=== PATIENT | female | born 1960 | race Caucasian/White ===

== ENCOUNTER 2016-10-15 07:03 | Day surgery (SDC) | payer BC ==
[2016-10-13 08:51] VITALS: BMI 30.1
--- NOTE | 2016-10-14 16:14 | HP ---
DATE OF ADMISSION: 10/15/2016 Lori Moore is a 56-year-old patient seen with left shoulder pain. We discussed options. She elected to proceed with left shoulder arthroscopy. Consent was obtained. Past medical history is hypothyroidism. Past surgical history is right shoulder arthroscopy. DAILY MEDICATIONS: Ibuprofen, levothyroxine. ALLERGIES: None. SOCIAL HISTORY: Patient denies tobacco use. PHYSICAL EVALUATION OF THE LEFT SHOULDER: Flexion 150 degrees, abduction 120 degrees, external rotation is 50 degrees with pain and weakness. Tenderness along the anterolateral acromion rotator cuff insertion. Impingement positive at 90 degrees. Distal neurovascular exam intact. Radiographs of the left shoulder revealed a type II anterior acromion and cystic changes of the tuberosity. An MRI of the left shoulder revealed impingement and rotator cuff tendinitis. IMPRESSION: Left shoulder impingement with possible rotator cuff tear. PLAN: Left shoulder arthroscopy with subacromial decompression, possible arthroscopic rotator cuff repair, and debridement.
[~2016-10-15 07:03] MED LIST: DEXAMETHASONE SOD PHOSPHATE 10 MG/ML 1 ML VIAL IV ONE; HYDROmorphone 1 MG/ML 1 ML SYRINGE IVP PRN; LACTATED RINGERS 1,000 ML IV SCH; LIDOCAINE 1% 20 ML VIAL (10MG/ML) FOR IV START INTRADERMA PRN; MIDAZOLAM 2 MG/2 ML VIAL IV PRN; ONDANSETRON 4 MG/2 ML VIAL IVP ONE; SCOPOLAMINE 1.5MG/72HR PATCH TRANSDERM ONE; ceFAZolin 1,000 MG in DEXTROSE/WATER 1 50ML.BAG IV ONE
[2016-10-15] MEDS ORDERED: MIDAZOLAM 2 MG/2 ML VIAL IVP ONE (08:17)
[2016-10-15] MEDS ORDERED: fentaNYL (PF) 50 MCG/ML 2 ML AMP ONE (08:29)
[2016-10-15] MEDS ORDERED: SUCCINYLCHOLINE CHLORIDE 100 MG/5 ML SYR IV ONE (08:29)
[2016-10-15] MEDS ORDERED: ROPIVACAINE 5 MG/ML 30 ML VIAL ONE (08:29)
[2016-10-15] MEDS ORDERED: MIDAZOLAM 2 MG/2 ML VIAL ONE (08:29)
[2016-10-15] MEDS ORDERED: LIDOCAINE 1% INJ 10MG/ML (20 ML MDV) ONE (08:29)
[2016-10-15] MEDS ORDERED: PROPOFOL 10 MG/ML 20 ML VIAL IV ONE (08:29)
[2016-10-15] MEDS ORDERED: LIDOCAINE 2%-EPI 1:100,000 20 ML VIAL ONE (08:29)
--- NOTE | 2016-10-15 10:08 | P.OP ---
Date of Procedure: 10/15/16 Preoperative Diagnosis: Left shoulder impingement Postoperative Diagnosis: 1. Left shoulder rotator cuff tear 2. Left shoulder impingement 3. Left shoulder superficial anterior labral tear Procedure(s) Performed: 1. Left shoulder arthroscopic rotator cuff repair 2. Left shoulder arthroscopic subacromial decompression 3. Left shoulder arthroscopic debridement labral tear Implants: 1-valeris 5.5 peek anchor Anesthesia: GETA, regional (Shoulder block) Surgeon: Nomi Garrett Return Agent [place] #1: Angel Montiel Estimated Blood Loss (ml): 15 Pathology: none sent Condition: stable Disposition: PACU Indications for Procedure: 56-year-old patient seen with progressive left shoulder pain. After treatment options discussed, she elected procedure left shoulder arthroscopy. Operative Findings: See description of procedure Description of Procedure: Patient underwent a shoulder block by department of anesthesia. The patient was then taken to the operative suite. The patient underwent a general anesthetic by the department of anesthesia. The patient was placed into a lateral position and secured. There was appropriate padding of the bony prominence. Left shoulder was then prepped and draped in normal sterile orthopedic fashion. We placed the extremity in 10 pounds of longitudinal traction. A posterior incision was now made for a posterior working portal site. The trocar and cannula were inserted into the glenohumeral joint. Arthroscopy was initiated. Spinal needle was now inserted anteriorly, to ascertain the anterior working portal site. An incision was now made in that area, a trocar was inserted followed by a probe. There was some superficial tearing of the anterior labrum. Grade 1 chondral malacia changes of the glenoid fossa with no osteochondral tears. Biceps tendon appeared intact with no obvious hyperemia or partial tearing. The posterior and inferior labrum appeared intact. I debrided that anterior superficial labral tear down to stable tissue. Residual labrum was found to be stable. Instruments now removed from the glenohumeral joint. Utilizing the posterior working portal site, the trocar and cannula were inserted into the subacromial space. Arthroscopy initiated. I made an incision 2 fingerbreadths lateral to the acromion. I introduced my trocar followed by my ArthroCare ablator. I now began ablating thick subacromial bursal tissue, which exposed the undersurface of the anterior acromion. This was diminished subacromial space. There was a prominent anterior acromion. A motorized bur was introduced and a subacromial decompression was performed. I also excised some osteophytes off the inferior aspect of the distal clavicle. The AC joint was visualized and noted to be only mildly arthritic. I did not think enough toward a Cb procedure. Turned my attention to the rotator cuff tendon. I did note a small tear anteriorly, the anterior aspect of the distal supraspinatus. I debrided the margins down to stable tissue. The tear now measured approximately 1.5 cm. I now abraded the footprint with a motorized bur. I introduced 2 everted mattress sutures. I then repaired the tendon with one single 5.5 peek anchor. We had good compression of the tendon along the footprint. Residual suture was were cut. The repair was stable. I injected 1 mL of Allogen intra-articular. Instruments now removed from the portal sites. All portal sites were approximated with nylon suture. Sterile dressings were applied followed by a shoulder immobilizer. Eduard GRANGER assisted with the procedure. The patient was awakened, transferred to a bed, and taken to recovery in stable condition.
[2016-10-15 10:13] VITALS: TEMP 96.8
[2016-10-15 10:20] VITALS: RESP 16
[2016-10-15 12:18] VITALS: BP 118/77; PULSE 52
== END 2016-10-15 12:42 | disposition home or self-care (01) ==
LOC: OR 07:03
PROVIDERS: ATTEND Orthopaedic Surgery
DX: M75.102 Unspecified rotator cuff tear or rupture of left shoulder, not specified as traumatic (principal); M75.42 Impingement syndrome of left shoulder; S43.402A Unspecified sprain of left shoulder joint, initial encounter; X58.XXXA Exposure to other specified factors, initial encounter; E03.9 Hypothyroidism, unspecified; Z79.899 Other long term (current) drug therapy
CPT/HCPCS: 64415; 29826; 29827; 20610; C1713; C1765; J2250; J1100; J2001; J3010; J0690; J2795; J0330; J2704

== ENCOUNTER → 2017-06-03 | Outpatient (CLI) | payer BC ==
--- NOTE | 2017-06-03 10:44 | CT ---
EXAMINATION TYPE: CT soft tissue neck w con DATE OF EXAM: 06/03/2017 HISTORY: Pain in right side of neck COMPARISON: NONE CT DLP: 336.3 mGycm. Automated Exposure Control for Dose Reduction was Utilized. TECHNIQUE: CT scan of the neck is performed with IV Contrast, patient injected with 100 mL of Omnipa que 300, axial images are obtained, coronal and sagittal reformatted images are reviewed. FINDINGS: Airway: There is asymmetric marked atrophy of right thyroid. There are 2 small subcentimeter nodules in left thyroid lobe. Consider nonemergent thyroid ultrasound follow-up. There is mild biapical pleur al/parenchymal scarring Parotid/submandibular glands: No gross abnormality seen. Carotid/Vascular Structures: No significant plaque or stenosis in common or internal carotid arteries bilaterally. Patent codominant vertebral arteries to basilar junction. Osseous Structures: There is moderate spurring anteriorly C5 and C6 levels. Other: No suspicious greater than 1 cm neck adenopathy is identified. A few prominent but subcentimet er lymph nodes are seen bilaterally. Largest for reference right submandibular level posterior all me dial aspect of right submandibular gland measures 9 x 8 mm axial image 49. No worrisome focal fluid collection is seen. Visualized portion of brain parenchyma is unremarkable. Visualized paranasal sinuses are clear. Visualized globes are intact. IMPRESSION: No significant abnormality is seen to account for patient's symptoms. Consider nonemerge nt thyroid ultrasound follow-up.
== END | disposition home or self-care (01) ==
LOC: RADCTMAIN 09:44
PROVIDERS: ATTEND Otolaryngology
DX: M54.2 Cervicalgia (principal); H92.01 Otalgia, right ear
CPT/HCPCS: 70491; Q9967

== ENCOUNTER → 2017-06-23 | Outpatient (CLI) | payer BC ==
--- NOTE | 2017-06-23 11:21 | US ---
EXAMINATION TYPE: US thyroid st tissue head/neck DATE OF EXAM: 06/23/2017 COMPARISON: NONE CLINICAL HISTORY: E04.1 Thyroid nodule. Thyroid nodule visualized left lobe on recent CT. Patient sta [place] complete thyroidectomy 1986 GLAND SIZE: Right Lobe: 1.4 x 0.7 x 0.6 cm Overall Parenchyma: homogenous Left Lobe: 3.0 x 1.1 x 1.5 cm Overall Parenchyma: homogeneous Isthmus Thickness: 0.3 cm NODULES RIGHT: # of nodules measured on right: 0 LEFT: # of nodules measured on left: 2 1. 0.6 X 0.4 x 0.6 cm solid nodule at the upper pole with well-defined margins; . This nodule is w ider than tall and shows intranodular vascularity. Prior size: no prior 2. 0.9 X 0.4 x 0.7 cm hypoechoic solid nodule at the lower pole with well-defined margins; . This n odule is wider than tall and shows intranodular vascularity. Prior size: no prior ISTHMUS: # of nodules measured in the isthmus: 0 Bilateral neck scanned, small amount of right thyroid tissue visualized. 2 nodules noted left thyroid IMPRESSION: Subcentimeter left thyroid nodules in a nonenlarged thyroid gland. Surveillance is recommended as the se do not meet size criteria for fine-needle aspiration.
== END | disposition home or self-care (01) ==
LOC: RADUSWWP 10:08
PROVIDERS: ATTEND Otolaryngology
DX: E04.2 Nontoxic multinodular goiter (principal)
CPT/HCPCS: 76536

== ENCOUNTER → 2018-01-13 | Outpatient (CLI) | payer BC ==
--- NOTE | 2018-01-13 15:28 | US ---
EXAMINATION TYPE: US thyroid st tissue head/neck DATE OF EXAM: 01/13/2018 COMPARISON: US 2018 CLINICAL HISTORY: E04.1 Thyroid nodules. Follow up thyroid nodules, on thyroid meds, patient states s he had a thyroidectomy in 1982. GLAND SIZE: Right Lobe: 1.0 x 0.6 x 0.7 cm Overall Parenchyma: homogenous Left Lobe: 3.2 x 1.2 x 1.3 cm Overall Parenchyma: homogeneous Isthmus Thickness: 0.2 cm NODULES RIGHT: # of nodules measured on right: 0 LEFT: # of nodules measured on left: 2 1. 0.5 X 0.4 x 0.6 cm hypoechoic mixed nodule at the mid pole with well-defined margins. This nodul e is wider than tall and shows intranodular vascularity. Prior size: 0.6 x 0.4 x 0.6 cm 2. 0.9 X 0.5 x 0.7 cm hypoechoic mixed nodule at the lower pole with well-defined margins. This nodu le is wider than tall and shows intranodular vascularity. Prior size: 0.9 x 0.4 x 0.7 cm ISTHMUS: # of nodules measured in the isthmus: 0 Bilateral neck scanned, no evidence of lymphadenopathy. IMPRESSION: 1. Stable subcentimeter left lobe thyroid nodules.
== END ==
LOC: RADUSWWP 09:34
PROVIDERS: ATTEND Otolaryngology
DX: E04.2 Nontoxic multinodular goiter (principal)
CPT/HCPCS: 76536

== ENCOUNTER → 2018-02-26 | Outpatient (CLI) | payer BC, OTHER ==
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
== END | disposition home or self-care (01) ==
LOC: RADMRIMAIN 07:25
PROVIDERS: ATTEND Orthopaedic Surgery
DX: M17.12 Unilateral primary osteoarthritis, left knee (principal); Z98.890 Other specified postprocedural states

== ENCOUNTER 2018-04-08 12:29 | Day surgery (SDC) | payer BC, OTHER ==
[2018-04-06 11:42] VITALS: BMI 36.3
--- NOTE | 2018-04-07 20:11 | HP ---
HISTORY AND PHYSICAL REASON FOR ADMISSION: Surgery scheduled for 04/08/2018 HISTORY OF PRESENT ILLNESS: Lori Moore is a 57-year-old patient seen with progressive left knee pain. Treatment options were discussed. She elected to proceed with arthroscopy. Consent was obtained. PAST MEDICAL HISTORY: Hypothyroidism. PAST SURGICAL HISTORY: Right shoulder arthroscopy. DAILY MEDICATIONS: Levothyroxine, ibuprofen. ALLERGIES: None reported. SOCIAL HISTORY: She denies current tobacco use. PHYSICAL EXAMINATION: Evaluation of left knee: Range of motion is -3 to 100 degrees. There is a mild effusion. There is tenderness along the medial joint line as well as the fibular head area. Positive medial Celena's. +1 Eliot. Good endpoint. MCL is +1. Good endpoint. RADIOGRAPHS: Radiographs of the left knee revealed evidence for a healing fibular head fracture. Left knee MRI revealed medial meniscal tear as well as a proximal fibular fracture. IMPRESSION: 1. Internal derangement, left knee with medial meniscal tear. 2. History of left knee fibular head fracture. 3. Hypothyroidism. PLAN: Left knee arthroscopy with partial meniscectomy and debridement. Surgery is scheduled for 04/08/2018. MMODL / IJN: [id number] /
[~2018-04-08 12:29] MED LIST changes: -ceFAZolin 1,000 MG in DEXTROSE/WATER 1 50ML.BAG IV ONE; +ceFAZolin IN SWFI 2 GM/20 ML SYRINGE IVP ONE
[2018-04-08] MEDS ORDERED: fentaNYL (PF) 50 MCG/ML 2 ML AMP ONE (14:04)
[2018-04-08] MEDS ORDERED: LIDOCAINE 1% INJ 10MG/ML (20 ML MDV) ONE (14:04)
[2018-04-08] MEDS ORDERED: MIDAZOLAM 2 MG/2 ML VIAL ONE (14:04)
[2018-04-08] MEDS ORDERED: HYDROmorphone (PF) 1 MG/ML ONE (14:04)
[2018-04-08] MEDS ORDERED: PROPOFOL 10 MG/ML 20 ML VIAL IV ONE (14:04)
[2018-04-08] MEDS ORDERED: BUPIVACAIN-EPI 0.25%-1:200,000 30 ML VIAL INTRAARTIC ONE ×3 (14:18→14:35)
[2018-04-08 14:50] VITALS: TEMP 97
--- NOTE | 2018-04-08 14:51 | P.OP ---
Date of Procedure: 04/08/18 Preoperative Diagnosis: Internal derangement left knee Postoperative Diagnosis: 1. Tear medial meniscus left knee 2. Grade 2 chondromalacia medial femoral condyle left knee 3. Grade 1/2 chondromalacia patella left knee 4. Reactive synovitis medial and suprapatellar compartments left knee Procedure(s) Performed: 1. Arthroscopic partial medial meniscectomy left knee 2. Arthroscopic chondroplasty medial femoral condyle left knee 3. Arthroscopic chondroplasty patella left knee 4. Arthroscopic partial synovectomy medial and suprapatellar compartments left knee Anesthesia: RAFIA, local Surgeon: Nomi Garrett Estimated Blood Loss (ml): 5 Pathology: none sent Condition: stable Disposition: PACU Indications for Procedure: 57-year-old patient seen with progressive left knee pain. After treatment options were discussed, she elected to proceed with arthroscopy. Operative Findings: see description of procedure Description of Procedure: Patient was taken to the operative suite. Patient underwent a general anesthetic by the department of anesthesia. Patient was given preoperative antibiotics. The left lower extremity was placed in a well-padded arthroscopic leg cross. The left leg was prepped and draped in the normal sterile orthopedic fashion. A lateral parapatellar and suprapatellar incision was made. Trochars were inserted. Arthroscopy was initiated. Suprapatellar pouch revealed diffuse thick reactive synovitis. The patellofemoral joint appeared to articulate congruently. There was grade 1/2 chondromalacia of the patella with some small osteochondral tears present. The scope was guided into the medial gutter. No loose bodies or plica were identified. The scope was then guided into the medial compartment. A medial parapatellar incision was made. Trocar inserted followed by probe. There was a radial tear posterior horn medial meniscus. There were grade 2 chondral moist changes medial femoral condyle with some osteochondral flap tears present. There was reactive synovitis anteriorly. I performed a partial medial meniscectomy down to stable tissue. I performed a chondroplasty of the femoral condyle down to stable tissue. I performed a partial synovectomy decompressing the reactive synovitis. The residual meniscus was stable. The residual osteochondral surface of the femoral condyle was stable. There was an area posteriorly of the tibial plateau the did have some eburnated exposed bone. Scope and probe were then guided into the intercondylar notch. Cruciates were identified, probed and found to be stable. The scope and probe were then guided into lateral compartment. Lateral meniscus was stable. The lateral compartment was otherwise unremarkable with no evidence for chondromalacia or loose body. The scope was in guided back into the suprapatellar compartment. I introduced a motorized shaver into the super compartment. I debrided some piecemeal fragments of meniscus I encountered. I performed a chondroplasty of the patella down to stable tissue. I performed a partial synovectomy decompressing the reactive synovitis. The shaver was removed. I took one more look on the entire knee, no residual debris. Instruments were now removed from the joint. The joint was infiltrated with .25% Marcaine. Steri-Strips were applied to the portal sites. Sterile dressings were applied. The patient was placed into a CHIP hose. No tourniquet was utilized. The patient was awakened, transferred to a bed and taken to recovery stable satisfactory condition.
[2018-04-08 15:02] VITALS: RESP 16
[2018-04-08 16:31] VITALS: BP 123/67; PULSE 71
== END 2018-04-08 16:57 | disposition home or self-care (01) ==
LOC: OR 12:29
PROVIDERS: ATTEND Orthopaedic Surgery
DX: M23.322 Other meniscus derangements, posterior horn of medial meniscus, left knee (principal); M22.42 Chondromalacia patellae, left knee; M65.862 Other synovitis and tenosynovitis, left lower leg; E03.9 Hypothyroidism, unspecified; Z79.890 Hormone replacement therapy; Z79.891 Long term (current) use of opiate analgesic
CPT/HCPCS: 29881; J2250; J1100; J2405; J2001; J3010; J1170; J2704; J0690

== ENCOUNTER → 2018-06-04 | Outpatient (CLI) | payer OTHER ==
--- NOTE | 2018-06-04 13:00 | MR ---
EXAMINATION TYPE: MR shoulder RT wo con DATE OF EXAM: 06/04/2018 COMPARISON: None HISTORY: Pain in right shoulder TECHNIQUE: Multiplanar, multisequence imaging of the right shoulder is performed without contrast. FINDINGS: Rotator Cuff: There is demonstration of the insertional fibers of both the infraspinatus and supraspi natus with multiple (at least 3 of each tendon) 2 mm insertional fiber tears. This is superimposed up on moderate supraspinatus and infraspinatus tendinopathy as there is alteration of the intrinsic sign al of the myotendinous junction and distal fibers of the supraspinatus and infraspinatus. Additionally there is a bursal surface tear of the myotendinous junction of the supraspinatus measuri ng 7 x 9 mm that is partial thickness, low-grade. The signal and muscle volume of the teres minor and subscapularis are unremarkable. Acromioclavicular Joint: There is no significant acromio clavicular arthropathy noted. Glenohumeral Joint: Mild cartilaginous loss of the inferior humeral head at the articular surface of the glenohumeral joint is noted. This measures approximately 8 mm. Labrum: The labrum appears grossly intact given limitation of non-arthrogram study. Biceps Tendon: The long head of biceps is in normal location within bicipital groove. Osseous defect of the humeral head for biceps anchor is noted. There is attenuation of the intra-articular portion o f the biceps tendon suggestive of moderate stenosis. Bone marrow signal: No focal abnormal marrow signal is appreciated. IMPRESSION: 1. Fenestration of the insertional fibers of the supraspinatus and infraspinatus with numerous multif ocal 2 mm tears of the insertional fibers. 2. Moderate supraspinatus and infraspinatus tendinopathy. 3. Low-grade partial-thickness bursal surface tear of the supraspinatus myotendinous junction measuri ng 7 x 9 mm. 4. Moderate intra-articular portion biceps tendinosis. 5. Partial thickness cartilaginous defect of the inferior humeral head.
== END | disposition home or self-care (01) ==
LOC: RADMRIMAIN 11:27
PROVIDERS: ATTEND Orthopaedic Surgery
DX: M75.111 Incomplete rotator cuff tear or rupture of right shoulder, not specified as traumatic (principal); M75.81 Other shoulder lesions, right shoulder

== ENCOUNTER → 2018-09-09 | Outpatient (CLI) | payer OTHER ==
[2018-09-09 12:22] LABS: Basophils # (A) 0.1 k/uL (0-0.2); Basophils % (A) 1 %; Eosinophils # (A) 0.1 k/uL (0-0.7); Eosinophils % (A) 1 %; HCT 42.5 % (34.0-46.0); HGB 14.1 gm/dL (11.4-16.0); Lymphocytes # (A) 1.4 k/uL (1.0-4.8); Lymphocytes % (A) 21 %; MCH 30.2 pg (25.0-35.0); MCHC 33.3 g/dL (31.0-37.0); MCV 90.8 fL (80.0-100.0); Mean Platelet Volume 7.6; Monocytes # (A) 0.4 k/uL (0-1.0); Monocytes % (A) 6 %; Neutrophils # (A) 4.6 k/uL (1.3-7.7); Neutrophils % (A) 69 %; Platelet Count 294 k/uL (150-450); RBC 4.68 m/uL (3.80-5.40); RDW 14.3 % (11.5-15.5); WBC 6.6 k/uL (3.8-10.6)
[2018-09-09 12:37] LABS: Potassium 4.3 mmol/L (3.5-5.1)
== END | disposition home or self-care (01) ==
LOC: LABPAT 10:56
PROVIDERS: ATTEND Orthopaedic Surgery
DX: Z01.818 Encounter for other preprocedural examination (principal); Z01.812 Encounter for preprocedural laboratory examination; M75.41 Impingement syndrome of right shoulder
CPT/HCPCS: 80051; 85025; 93005

== ENCOUNTER 2018-09-16 08:13 | Day surgery (SDC) | payer BC, OTHER ==
[2018-09-13 10:04] VITALS: BMI 34.0
--- NOTE | 2018-09-15 17:25 | HP ---
HISTORY AND PHYSICAL DATE OF SURGERY: 09/16/2018 Lori Moore is a 58-year-old patient seen with progressive right shoulder pain. Treatment options were discussed. She elected to proceed with right shoulder arthroscopy. Consent was obtained. PAST MEDICAL HISTORY: Hypothyroidism. PAST SURGICAL HISTORY: Shoulder arthroscopy, knee arthroscopy. DAILY MEDICATIONS: Levothyroxine. ALLERGIES: NONE. SOCIAL HISTORY: She denies tobacco use. PHYSICAL EVALUATION OF THE RIGHT SHOULDER: Flexion 150 degrees, abduction 130 degrees, external rotation 40 degrees with weakness. Tenderness along the anterolateral acromion and rotator cuff insertion site. Impingement sign is positive at 90 degrees. Distal neurovascular exam is intact. RADIOGRAPHS: Radiographs of the right shoulder revealed a partial rotator cuff tear, biceps tendinitis, cartilage defect of the humeral head. X-rays of the right shoulder failed to reveal any osseous abnormality. IMPRESSION: Right shoulder impingement with partial rotator cuff tear and biceps tendinitis. PLAN: Right shoulder arthroscopy with subacromial decompression, probable arthroscopic rotator cuff repair and debridement. MMODL / IJN: [id number] /
[~2018-09-16 08:13] MED LIST changes: +HYDROmorphone 0.5 MG/0.5 ML SYRINGE IVP PRN; -HYDROmorphone 1 MG/ML 1 ML SYRINGE IVP PRN; -LACTATED RINGERS 1,000 ML IV SCH
[2018-09-16] MEDS: LACTATED RINGERS 1,000 ML IV SCH ×2 (08:38→09:35)
[2018-09-16] MEDS ORDERED: MIDAZOLAM (PF) 2 MG/2 ML VIAL IVP ONE (09:05)
[2018-09-16] MEDS ORDERED: ROPIVACAINE 5 MG/ML 30 ML VIAL ONE (09:32)
[2018-09-16] MEDS ORDERED: PROPOFOL 10 MG/ML 20 ML VIAL IV ONE (09:32)
[2018-09-16] MEDS ORDERED: DEXAMETHASONE SOD PHOS (MDV) 100 MG/10 ML VIAL ONE (09:32)
[2018-09-16] MEDS ORDERED: LIDOCAINE 1% INJ 10MG/ML (20 ML MDV) ONE (09:32)
[2018-09-16] MEDS ORDERED: fentaNYL (PF) 50 MCG/ML 2 ML AMP ONE (09:32)
[2018-09-16] MEDS ORDERED: MIDAZOLAM 2 MG/2 ML VIAL ONE (09:32)
[2018-09-16] MEDS ORDERED: SUCCINYLCHOLINE CHLORIDE 100 MG/5 ML SYR IV ONE (09:32)
[2018-09-16] MEDS ORDERED: LACTATED RINGERS 1,000 ML IV ONE (10:30)
--- NOTE | 2018-09-16 11:10 | P.OP ---
Date of Procedure: 09/16/18 Preoperative Diagnosis: Right shoulder impingement Postoperative Diagnosis: 1. Right shoulder rotator cuff tear 2. Right shoulder impingement 3. Right shoulder partial long head biceps tendon tear Procedure(s) Performed: 1. Right shoulder arthroscopic rotator cuff repair 2. Right shoulder arthroscopic subacromial decompression 3. Right shoulder arthroscopic biceps tenotomy Anesthesia: GETA, regional (Interscalene block) Surgeon: Nomi Garrett Merchandise Worker #1: Angel Montiel Estimated Blood Loss (ml): 5 Pathology: none sent Condition: stable Disposition: PACU Indications for Procedure: 58-year-old patient seen with progressive right shoulder pain. After having treatment options discussed, she elected to proceed with arthroscopy. Operative Findings: See description of procedure Description of Procedure: Patient underwent an interscalene block by department of anesthesia for postoperative pain management. The patient was then taken to the operative suite. The patient underwent a general anesthetic by the department of anesthesia. The patient was placed into a lateral position and secured. There was appropriate padding of the bony prominence. Right shoulder was then prepped and draped in normal sterile orthopedic fashion. We placed the extremity in 10 pounds of longitudinal traction. A posterior incision was now made for a posterior working portal site. The trocar and cannula were inserted into the glenohumeral joint. Arthroscopy was initiated. Spinal needle was now inserted anteriorly, to ascertain the anterior working portal site. An incision was now made in that area, a trocar was inserted followed by a probe. There was some partial tearing long head biceps tendon. There was some residual suture material consistent with previous surgery. I could visualize a rotator cuff tear along the anterior aspect of the distal supraspinatus were glenohumeral side. I debrided that residual suture material. I performed arthroscopic biceps tenotomy. The labrum was stable. The glenohumeral joint was stable. Instruments now removed from glenohumeral joint. Utilizing the posterior working portal site, the trocar and cannula were inserted into the subacromial space. Arthroscopy initiated. I made an incision 2 fingerbreadths lateral to the acromion. I introduced my trocar followed by my ArthroCare ablator. I now began ablating thick subacromial bursal tissue, which exposed the undersurface of the anterior acromion. There was diminished subacromial space. There was a very prominent anterior acromion. A motorized bur was introduced and a subacromial decompression was performed. I also excised some osteophytes off the inferior aspect of the distal clavicle. The AC joint was visualized and noted to be only mildly arthritic. I now turned my attention to the distal supraspinatus rotator cuff tendon tear. It appeared to be just posterior to the previous repair. I debrided the margins down to stable tendon tissue. The defect measured 1.5 cm but a fairly mobile over the footprint. I abraded the footprint with a motorized bur. I could visualize with a previous anchor was inserted was able to actually extract that. We now left that open hole to reuse for our new anchor. With the assistance of Eduard GRANGER I passed 2 everted mattress sutures through good bites of rotator cuff tendon. I now chose a 6.25 Arthrex anchor. I passed the sutures through the anchor and the anchor was introduced our pre-punch hole. Appropriate tensioning was performed by Eduard GRANGER while I held the anchor and I will it in appropriate position. At this point Eduard GRANGER inserted the anchor compressing the tendon along the footprint very nicely. We had good compression of the tendon along the entire footprint. Residual suture limbs were clipped. I injected 1 mL Renue intra-articular. Instruments now removed from the portal sites. All portal sites were approximated with nylon suture. Sterile dressings were applied followed by a shoulder sling. Angel GRANGER assisted in this complex case. The patient was awakened, transferred to a bed, and taken to recovery in stable condition.
[2018-09-16 11:11] VITALS: TEMP 96.9
[2018-09-16 12:26] VITALS: BP 123/82; PULSE 57; RESP 16
--- NOTE | 2018-09-17 07:23 | P.ONQ ---
Anesthesiology Proc Note - PNB - Peripheral Nerve Block Performed Right Interscalene Single Time Out Performed: Yes Procedure Start Time: :04 Procedure Stop Time: 09:10 Indication: Acute Post-Operative Pain, Requested by physician Sedation Type: Sedate with meaningful contact maintained Position: Supine Needle Size: 50mm (2") Needle Gauge: 21 Technique: Ultrasound (ropi .5% 30cc plus dexamethasone 4 mg) Blood Aspirated: No Pain Paresthesia on Injection Noted: No Resistance on Injection: Normal Events: Uneventful and Well Tolerated
== END 2018-09-16 12:57 | disposition home or self-care (01) ==
LOC: OR 08:13
PROVIDERS: ATTEND Orthopaedic Surgery
DX: M75.101 Unspecified rotator cuff tear or rupture of right shoulder, not specified as traumatic (principal); M75.41 Impingement syndrome of right shoulder; S46.111A Strain of muscle, fascia and tendon of long head of biceps, right arm, initial encounter; X58.XXXA Exposure to other specified factors, initial encounter; M25.711 Osteophyte, right shoulder; E03.9 Hypothyroidism, unspecified; Z79.890 Hormone replacement therapy; Z79.891 Long term (current) use of opiate analgesic
CPT/HCPCS: 64415

== ENCOUNTER → 2018-12-14 | Outpatient (CLI) | payer BC ==
[2018-12-14 15:14] LABS: Basophils # (A) 0.1 k/uL (0-0.2); Basophils % (A) 1 %; Eosinophils # (A) 0.1 k/uL (0-0.7); Eosinophils % (A) 1 %; HCT 46.8 % (34.0-46.0); HGB 15.2 gm/dL (11.4-16.0); Lymphocytes # (A) 2.1 k/uL (1.0-4.8); Lymphocytes % (A) 23 %; MCH 29.4 pg (25.0-35.0); MCHC 32.5 g/dL (31.0-37.0); MCV 90.3 fL (80.0-100.0); Mean Platelet Volume 6.8; Monocytes # (A) 0.4 k/uL (0-1.0); Monocytes % (A) 5 %; Neutrophils # (A) 6.3 k/uL (1.3-7.7); Neutrophils % (A) 70 %; Platelet Count 331 k/uL (150-450); RBC 5.18 m/uL (3.80-5.40); RDW 13.4 % (11.5-15.5); WBC 9.1 k/uL (3.8-10.6)
[2018-12-14 15:21] LABS: Potassium 4.1 mmol/L (3.5-5.1)
[2018-12-14 15:24] LABS: INR 0.9 (<1.2); Prothrombin Time 9.9 sec (9.0-12.0)
== END | disposition home or self-care (01) ==
LOC: LABPAT 14:31
PROVIDERS: ATTEND Orthopaedic Surgery
DX: Z01.812 Encounter for preprocedural laboratory examination (principal); M17.11 Unilateral primary osteoarthritis, right knee
CPT/HCPCS: 36415; 80051; 85025; 85610; 87070

== ENCOUNTER 2018-12-20 06:13 | Day surgery (SDC) | payer BC, OTHER ==
--- NOTE | 2018-12-20 00:27 | HP ---
HISTORY AND PHYSICAL REASON FOR ADMISSION: Surgery scheduled for 12/20/2018 Lori Moore is a 58-year-old patient seen with symptomatic left knee osteoarthritis. We discussed options for treatment. She elected to proceed with left total knee arthroplasty. Consent regarding the procedure was obtained. PAST MEDICAL HISTORY: Hypothyroidism. PAST SURGICAL HISTORY: Right shoulder arthroscopy, left knee arthroscopy. DAILY MEDICATIONS: Levothyroxine. ALLERGIES: None. SOCIAL HISTORY: She denies tobacco use. PHYSICAL EXAMINATION: Evaluation of the left knee range of motion is -3 to 120. Tenderness medial joint line. Crepitus medial patellofemoral compartments. Pain with patellofemoral compression. Ligaments stable. Hip rotation without pain. Distal neurovascular exam intact. RADIOGRAPHS: Left knee radiographs revealed moderate to severe medial compartment osteoarthritis and mild patellofemoral compartment osteoarthritis. IMPRESSION: 1. Left knee osteoarthritis. 2. Hypothyroidism. PLAN: Left total knee arthroplasty. Surgery scheduled for 12/20/2018. MMODL / IJN: [id number] /
[~2018-12-20 06:13] MED LIST changes: +ACETAMINOPHEN TAB 500 MG TAB PO ONE; -DEXAMETHASONE SOD PHOSPHATE 10 MG/ML 1 ML VIAL IV ONE; -HYDROmorphone 0.5 MG/0.5 ML SYRINGE IVP PRN; +MELOXICAM 7.5 MG TAB PO ONE; -ONDANSETRON 4 MG/2 ML VIAL IVP ONE; +ROPIVACAINE 246.25 MG, EPINEPHrine 0.5 MG, KETOROLAC 30 MG, cloNIDine HCL/PF 80 MCG, WA... MISCELLANE ONE; -SCOPOLAMINE 1.5MG/72HR PATCH TRANSDERM ONE; +TRANEXAMIC ACID 1,000 MG in SODIUM CHLORIDE 0.9% 100 ML IVPB ONE; -ceFAZolin IN SWFI 2 GM/20 ML SYRINGE IVP ONE; +fentaNYL (PF) 50 MCG/ML 2 ML AMP IV PRN
[2018-12-20] MEDS: LACTATED RINGERS 1,000 ML IV SCH ×6 (06:41→19:23)
[2018-12-20] MEDS ORDERED: MIDAZOLAM (PF) 2 MG/2 ML VIAL IVP ONE (06:48)
[2018-12-20] MEDS ORDERED: DEXAMETHASONE SOD PHOSPHATE 4 MG/ML 1 ML VIAL IVP ONE (07:09)
[2018-12-20] MEDS ORDERED: ONDANSETRON 4 MG/2 ML VIAL IVP ONE (07:10)
[2018-12-20] MEDS ORDERED: ePHEDrine SULFATE/0.9% NACL/PF 50 MG/5 ML SYRINGE IV ONE (07:21)
[2018-12-20] MEDS ORDERED: MIDAZOLAM 2 MG/2 ML VIAL ONE (07:21)
[2018-12-20] MEDS ORDERED: TRANEXAMIC ACID 1,000 MG/10 ML VIAL ONE (07:21)
[2018-12-20] MEDS ORDERED: PROPOFOL 10 MG/ML 20 ML VIAL IV ONE (07:21)
[2018-12-20] MEDS ORDERED: fentaNYL (PF) 50 MCG/ML 2 ML AMP ONE (07:21)
[2018-12-20] MEDS ORDERED: SODIUM CHLORIDE 0.9% 100 ML BAG ONE (07:21)
[2018-12-20] MEDS ORDERED: ceFAZolin 3,000 MG in SODIUM CHLORIDE 0.9% IRRIGATIO 3,000 ML IRRIGATION ONE (07:29)
[2018-12-20] MEDS ORDERED: LACTATED RINGERS 1,000 ML IV ONE (08:47)
[2018-12-20] MEDS ORDERED: ROPIVACAINE 0.2%-NS ON-Q PUMP 1,090 MG, EMPTY PAIN BALL 1 EACH MISCELLANE PRN (08:57)
[2018-12-20] MEDS ORDERED: HYDROcodone/APAP 5-325MG 1 EACH TAB PO PRN (09:03)
[2018-12-20] MEDS ORDERED: HYDROmorphone 0.5 MG/0.5 ML SYRINGE IVP PRN ×2 (09:03)
[2018-12-20] MEDS ORDERED: HYDROmorphone 1 MG/ML 1 ML SYRINGE IVP PRN (09:03)
[2018-12-20] MEDS ORDERED: NALOXONE 0.4 MG/ML 1 ML VIAL IV PRN (09:03)
--- NOTE | 2018-12-20 09:03 | P.OP ---
Date of Procedure: 12/20/18 Preoperative Diagnosis: Left knee osteoarthritis Postoperative Diagnosis: Left knee osteoarthritis Procedure(s) Performed: Left total knee arthroplasty Implants: 1. Microport evolution size 3 left cemented femur 2. Microport evolution size 3 left cemented tibial baseplate 3. Microport evolution size 3 left CS 12 mm polyethylene tibial insert 4. Microport evolution 32 mm all polyethylene cemented patella Anesthesia: regional (Adductor canal catheter), local, spinal Surgeon: Nomi Garrett Travel Rn #1: Angel Montiel Estimated Blood Loss (ml): 50 Pathology: other (Bone) Condition: stable Disposition: PACU Indications for Procedure: 58-year-old patient seen with symptomatic left knee osteoarthritis. After treatment options were discussed, she elected to proceed with total knee arthroplasty. Operative Findings: see description of procedure Description of Procedure: Patient was taken to the operative suite after having an adductor canal catheter placed by the department of anesthesia for postoperative pain management. Patient underwent a spinal anesthetic by the department of anesthesia. Patient was given preoperative IV intake antibiotics and TXA. A well-padded tourniquet was placed about the left lower extremity. The lower extremity was then prepped and draped in the normal sterile orthopedic fashion. The extremity was elevated, a tourniquet was insufflated to 300. A standard anterior incision was made sharply through skin. Dissection was taken down through the subcutaneous soft tissues down to the extensor mechanism. A medial arthrotomy was performed, patella was everted and knee was flexed. There was advanced osteoarthritis noted. I introduced my distal intramedullary femoral drill. I then introduced the distal femoral cutting jig. Eduard GRANGER secured the cutting jig with 2 pins. I held retractors in position while Eduard GRANGER performed the distal femoral resection through the guide area we now removed her distal femoral cutting guide. We now placed our 4-in-1 femoral cutting block and positioned and it was secured with 2 pins by Eduard GRANGER while I held the block in position. The distal femoral finishing was now completed. A proximal tibial cutting guide was positioned. I held the guide in the appropriate position with both hands well Eduard GRANGER inserted stabilizing pins into the guide. Proxi mal tibial cut was made. We now placed a trial femoral component into position, along with an appropriate size tibial tray and insert. We now took the knee through range of motion and had full extension good flexion and good overall soft tissue balance noted. The patella was everted and stabilized with 2 towel clips held by Eduard GRANGER while I performed a flush with patellar quad tendon utilizing a fresh sawblade. We templated the patella, appropriate drill holes were made. An appropriate trial patella was positioned, knee was taken through full range of motion with the patella tracking very nicely. The trial patella was removed. Drill holes were made through the femoral component. All trial components were removed after marking off the appropriate rotation of the tibia. Retractors were now positioned along the proximal tibia. An appropriate keel punch was made with the appropriate size tibial guide by myself on Eduard GRANGER assisted by holding retractors. At this point appropriate size implants were chosen and opened. The joint was irrigated copiously with pulse lavage mechanical irrigation. The posterior capsule was infiltrated with local analgesic. The wound was irrigated with pulse lavage mechanical irrigation. We mixed antibiotic methylmethacrylate. We placed the knee into flexion. We placed multiple retractors assisted by Eduard GRANGER to expose the proximal tibia. Once the methyl methacrylate was ready, the tibial component was cemented into place removing any excess methylmethacrylate form by both myself and Eduard GRANGER. The femoral component was cemented into place removing the removing any excess methylmethacrylate performed by both myself and Eduard GRANGER. We then inserted the appropriate size polyethylene tibial insert. We made sure that it was locked into position. We took the knee into full extension, and then back in a flexion making sure we had removed any excess methylmethacrylate. The patellar component was then cemented down and secured with clamp. Excess methylmethacrylate removed. We kept the knee in full extension, patellar clamp in position until methylmethacrylate had hardened. Once it had hardened the patellar clamp was removed. The knee was taken through full range of motion. The patella tracked nicely. There was good soft tissue balancing. The tourniquet was now released. Additional hemostasis was achieved via electrocautery. A second gram of TXA was given. The wound again was irrigated with pulse lavage mechanical irrigation. The superficial soft tissues were infiltrated local analgesic. The extensor mechanism was repaired with Vicryl. We checked the repair with range of motion and it was stable. The subcutaneous soft tissues were repaired with Vicryl in layers. The skin was approximated with pernio/Dermabond. Sterile dressings were applied followed by loose web roll and Mike bandage. The patient was transferred to a bed, and taken to recovery in stable and satisfactory condition. Eduard GRANGER assisted with this complex procedure.
--- NOTE | 2018-12-20 09:55 | XR ---
EXAMINATION TYPE: XR knee limited LT DATE OF EXAM: 12/20/2018 CLINICAL HISTORY: Left knee pain and arthritis status post total knee replacement. TECHNIQUE: Portable AP and crosstable lateral views of the left knee are obtained immediately postop eratively. COMPARISON: None FINDINGS: Metallic hardware from total left knee arthroplasty is seen and appears satisfactory in al ignment and position. There is evidence of recent surgery with diffuse subcutaneous gas and soft tis amilcar swelling noted. IMPRESSION: METALLIC HARDWARE FROM TOTAL LEFT KNEE ARTHROPLASTY IS SATISFACTORY IN ALIGNMENT.
[2018-12-20 10:31] VITALS: BMI 33.6
[2018-12-20] MEDS: HYDROcodone/APAP 5-325MG 1 EACH TAB PO PRN ×2 (12:38→18:39)
[2018-12-20] MEDS ORDERED: SENNOSIDES-DOCUSATE SODIUM 1 EACH TAB PO SCH (21:00)
--- NOTE | 2018-12-20 21:21 | P.ANPRN ---
Procedure Note - Anesthesia - Nerve Block Performed Left Adductor Canal Infusion Time Out Performed: Yes Date of Procedure: 12/20/18 Procedure Start Time: 06:48 Procedure Stop Time: 07:00 Location of Patient Procedure: PreOp Indication: Acute Post-Operative Pain, Requested by Surgeon Sedation Type: Sedate with meaningful contact maintained Preparation: Sterile Prep, Sterile Dressing Position: Supine Catheter: Indwelling Needle Types: Pajunk Needle Gauge: 21 Ultrasound used to visualize needle placement: Yes Ultrasound used to observe medication spread: Yes Injectate: 0.5% Ropivacaine (see comment for volume) (ropi .5% 20cc) Blood Aspirated: No Pain Paresthesia on Injection Noted: No Resistance on Injection: Normal Image Stored and Saved: Yes Events: Uneventful and Well Tolerated
[2018-12-21] MEDS: ENOXAPARIN 30 MG/0.3 ML SYRINGE SQ SCH ×2 (00:07→09:22)
--- NOTE | 2018-12-21 00:07 | P.CONS ---
History of Present Illness - Reason for Consult Consult date: 12/20/18 Medical management Requesting physician: Nomi Garrett - Chief Complaint Left knee surgery - History of Present Illness Consultation: This is a very pleasant [address] Betty South. Chronic stable medical conditions include arthritis of the hip, hypothyroid varicose veins. She also has a thyroid nodule in the setting of a prior thyroidectomy for precancerous cells that is being followed closely. Patient today underwent a left total knee arthroplasty. Has current dressing and Hemovac in the place. Pain is well controlled. No nausea vomiting. No chest pain or short of breath. Denies any cardiac history. Laying in bed. Did tolerate her meals. Review of systems: GEN.: None EYES: None HEENT: None NECK: None RESPIRATORY: None CARDIOVASCULAR: None GASTROINTESTINAL: None GENITOURINARY: None MUSCULOSKELETAL: [As above LYMPHATICS: None HEMATOLOGICAL: None PSYCHIATRY: None NEUROLOGICAL: None Past medical history: Osteoarthritis, hypothyroid, varicose veins Social history: Does not smoke. Alcohol rarely. . Is a elementary school director Family history: Cancer and melanoma Physical examination: VITAL SIGNS: 97.7, 85, 15, 104/64, 92% room air GENERAL: BMI 33.5, laying in bed comfortable. EYES: Pupils equal. Conjunctiva normal. HEENT: External appearance of nose and ears normal, oral cavity grossly normal. NECK: JVD not raised; masses not palpable. HEART: First and second heart sounds are normal; no edema. LUNGS: Respiratory rate normal; clear to auscultation. ABDOMEN: Soft, nontender, liver spleen not palpable, no masses palpable. PSYCH: Alert and oriented x3; mood and affect normal. NEUROLOGICAL: Cranial nerves grossly intact; no facial asymmetry, power and sensation grossly intact MUSCULOSKELETAL: Dressing over the left knee. LYMPHATICS: No lymph nodes palpable in the axilla and neck INVESTIGATIONS, reviewed in the clinical context: From December 14 White count 9.1 hemoglobin 15.2 potassium 4.1 Assessment: -Left total knee arthroplasty -Obesity BMI 33.5 -Thyroid nodule being followed as an outpatient -Lower extremity varicose vein -Primary osteoarthritis Plan: Home medications to be resumed. Care was discussed with the patient. Question were answered. Patient is on IV lactated Ringer's. Also on Lovenox for DVT prophylaxis per orthopedics Thank you Past Medical History Past Medical History: Osteoarthritis (OA), Thyroid Disorder Additional Past Medical History / Comment(s): Hx FX ribs. PRE-CANCEROUS THYROID (THYROIDECTOMY). VARICOSE VEINS, STATES GROWTH ON LT THYROID, DR IS WATCHING. History of Any Multi-Drug Resistant Organisms: None Reported Past Surgical History: Section, Cholecystectomy, Hysterectomy, Orthopedic Surgery, Tubal Ligation Additional Past Surgical History / Comment(s): Lt knee scope x 5, Rt knee x 2, repair shattered rt thumb, thyroidectomy, rt rotator cuff repairX3, last on 09/16/18. left rotator cuff, colonoscopy, TLK 12/20/2018 Past Anesthesia/Blood Transfusion Reactions: Motion Sickness, Postoperative Nausea & Vomiting (PONV) Past Psychological History: No Psychological Hx Reported Smoking Status: Never smoker Past Alcohol Use History: Rare Past Drug Use History: None Reported - Past Family History Brother(s) Family Medical History: Cancer Additional Family Medical History / Comment(s): MELANOMA Medications and Allergies Home Medications Medication Instructions Recorded Confirmed Type Multivitamin [Multiple Vitamins] 1 each PO DAILY 10/13/16 12/13/18 History [place]-3 Fatty Acids/Fish Oil [Fish 1 each PO DAILY 10/13/16 12/13/18 History Oil 1,000 mg Capsule] Levothyroxine Sodium 133 mcg PO DAILY 09/13/18 12/20/18 History Ibuprofen [Motrin Ib] 800 mg PO Q6H PRN 12/13/18 12/13/18 History Allergies Allergy/AdvReac Type Severity Reaction Status Date / Time No Known Allergies Allergy Verified 12/13/18 14:59 Physical Exam Vitals: Vital Signs Temp Pulse Pulse Resp BP BP Pulse Ox 12/20/18 19:02 97.7 F 85 15 104/64 92 L 12/20/18 12:30 86 128/75 12/20/18 12:00 77 124/75 12/20/18 11:45 80 122/68 12/20/18 11:30 76 125/64 12/20/18 11:15 87 121/68 12/20/18 11:00 83 122/70 12/20/18 10:45 84 114/69 12/20/18 10:24 98.3 F 79 119/77 95 12/20/18 10:08 63 16 110/55 96 12/20/18 09:53 69 16 110/56 94 L 12/20/18 09:38 76 16 104/57 96 12/20/18 09:23 97.3 F L 81 14 103/56 95 12/20/18 07:11 57 L 16 129/64 97 12/20/18 06:27 98 F 69 16 126/59 95 Intake and Output 12/20/18 12/20/18 12/20/18 06:59 14:59 22:59 Intake Total 200 1201 Output Total 50 Balance 200 1151 Intake: IV 200 1201 Output: Estimated Blood Loss 50 Other: # Voids 2 1 Weight 85.729 kg
[2018-12-21] MEDS ORDERED: MELATONIN 3 MG TABLET PO PRN (00:43)
[2018-12-21] MEDS: HYDROcodone/APAP 5-325MG 1 EACH TAB PO PRN ×2 (03:35→09:23)
[2018-12-21] MEDS: LACTATED RINGERS 1,000 ML IV SCH (05:00)
--- NOTE | 2018-12-21 06:51 | P.PN ---
Progress Note - Text 12/21 625am 58-year-old female status post total knee replacement by Dr. Garrett. Patient has an On-Q pump for postop pain control with the solution running at 8 mL an hour with a VAS of 1. No motor or sensory deficits noted. Dressing clean dry and intact. Assessment plan to continue On-Q pump infusion
[2018-12-21 07:19] VITALS: BP 103/60; PULSE 63; RESP 16; TEMP 98.4
[2018-12-21 08:26] LABS: Basophils % (A) 0 %; Eosinophils % (A) 0 %; HCT 38.7 % (34.0-46.0); HGB 12.8 gm/dL (11.4-16.0); Lymphocytes # (A) 2.1 k/uL (1.0-4.8); Lymphocytes % (A) 14 %; MCH 30.3 pg (25.0-35.0); MCHC 33.1 g/dL (31.0-37.0); MCV 91.5 fL (80.0-100.0); Monocytes # (A) 0.9 k/uL (0-1.0); Monocytes % (A) 6 %; Neutrophils # (A) 12.2 k/uL (1.3-7.7); Neutrophils % (A) 79 %; Platelet Count 310 k/uL (150-450); RBC 4.23 m/uL (3.80-5.40); RDW 13.7 % (11.5-15.5); WBC 15.3 k/uL (3.8-10.6)
[2018-12-21] MEDS ORDERED: MELOXICAM 7.5 MG TAB PO SCH (09:00)
--- NOTE | 2018-12-21 11:46 | P.PN ---
Subjective Progress Note Date: 12/21/18 Principal diagnosis: Status post left total knee arthroplasty Patient evaluated at bedside today, she's resting comfortably. Pain is well- controlled. She has ambulated well with therapy. She denies any chest pain or shortness of breath. Objective - Vital Signs Vital signs: Vital Signs Temp 98.4 F 12/21/18 07:00 Pulse 63 12/21/18 08:00 Resp 16 12/21/18 08:00 BP 103/60 12/21/18 07:00 Pulse Ox 95 12/21/18 07:00 Intake & Output 12/20/18 12/21/18 12/21/18 18:59 06:59 18:59 Intake Total 1201 Output Total 50 Balance 1151 Intake: IV 1201 Output: Estimated Blood Loss 50 Other: Voiding Method Toilet Toilet # Voids 2 3 - Exam Left lower extremity: Incision is clean, dry, and intact. The exofin fusion tape is in good condition. There is minimal soft tissue swelling and ecchymosis surrounding the medial and lateral aspects of the incision. Calf is soft, no tenderness with palpation. Plantar flexion, dorsiflexion, EHL, FHL are intact. Sensory exam to light touch throughout the extremity is intact, dorsal pedis pulses 2+. - Labs CBC & Chem 7: 12/21/18 07:40 Labs: Abnormal Lab Results - Last 24 Hours (Table) 12/21/18 Range/Units 07:40 WBC 15.3 H (3.8-10.6) k/uL Neutrophils # 12.2 H (1.3-7.7) k/uL Assessment and Plan Plan: Assessment: Postop day 1# status post left total knee arthroplasty Plan: Pain control, plan for discharge home on oral medication GI and DVT prophylaxis, aspirin 81 mg twice a day Home physical therapy and nursing after discharge Wound care instructions discussed Icing and elevating techniques discussed Medical recommendations Discharge planning: Plan for discharge home today Time with Patient: Less than 30
--- NOTE | 2018-12-21 11:49 | P.DS ---
Providers Date of admission: 12/20/2018 Expected date of discharge: 12/21/18 Attending physician: Nomi Garrett Consults: 12/20/18 09:03 Consult Physician Routine Consulting Provider: Rocio Walden Consult Reason/Comments: Medical management Do you want consulting provider notified?: Yes Primary care physician: Kayla South Hospital Course: Date of admission: 12/20/2018 Date of discharge: 12/21/2018 Admission diagnosis: Status post left total knee arthroplasty Discharge diagnosis: Same Attending physician: Dr. Garrett Surgical procedures: Left total knee arthroplasty Brief history: Patient is a 58-year-old female with a history of progressive primary left knee osteoarthritis. At this point patient has failed conservative treatment measures and has opted to proceed with a elective left total knee arthroplasty. Hospital course: Details of patient's surgery can be found in operative report. Patient tolerated the procedure well and was subsequently transported to orthopedic floor. Patient's orthopeidc and medical care was provided daily. Patient had daily laboratory tests performed for evaluation of overall blood counts. Patient had daily physical therapy to include strengthening range of motion as well as education with walker ambulation. Patient had daily CPM usage as part of their physical therapy program. Patient was treated with Lovenox for their postoperative DVT prophylaxis during their inpatient stay. Patient was noted to have a relatively uneventful postoperative course. Patient reported satisfactory pain control with oral pain medications by postoperative day 0. Patient showed satisfactory progress with physical therapy. Patient moved steadily through the program and had no difficulty meeting the goals by postop erative day 1. Given patient's otherwise satisfactory course and having met physical therapy goals, plan is to discharge patient home on postoperative day 1. Discharge condition/disposition: Patient will be discharged home in stable condition. Discharge medications: Instructions are given on resumption of patient's normal daily medications per primary care recommendation, in addition patient will be prescribed [place] 5 mg/325 mg, tramadol 50 mg, Colace 100 mg, Pepcid 20 mg, aspirin 81 mg. Discharge instructions: 1. Wound care and infection precautions, keep incision dry and covered while s howering, no lotions, creams, moisturizers. No soaking, tubs, pools, hottubs. Do not scrub over the incision. 2. Weight-bear as tolerated with walker / cane until follow-up. 3. Ice and elevate when necessary. Do not exceed 20 minutes per hour with ice pack. 4. Utilize compression sleeve until seen at first follow up appointment. 5. Visiting nursing care. 6. Home physical therapy including home CPM. 7. Pain meds and anticoagulants per prescription. 8. Pain medication has potential to cause constipation. Increase oral fluid and fiber intake. Contact primary care provider if you have not had a bowel movement within 48 hours after discharge 9. No anti-inflammatory medication until discussed at first post operative visit, this including Motrin, Aleve, Mobic, Diclofenac. 10. Follow up in office at 2 weeks postop with Eduard Montiel PA-C 11. Follow up with your primary care doctor 7-10 days after discharge. 12. Contact [facility] with any questions, . Procedures: Left total knee arthroplasty Patient Condition at Discharge: Good Plan - Discharge Summary Discharge Rx Participant: Yes New Discharge Prescriptions: New Aspirin [Adult Low Dose Aspirin EC] 81 mg PO BID #60 tablet. Docusate [Colace] 100 mg PO DAILY #30 capsule Hydrocodone/Acetaminophen [Barling 5-325] 1 - 2 each PO Q6HR PRN #56 tab PRN Reason: Pain Famotidine [Pepcid] 20 mg PO DAILY #30 tablet traMADol HCl [Ultram] 50 mg PO Q6H PRN #28 tab PRN Reason: Pain No Action [place]-3 Fatty Acids/Fish Oil [Fish Oil 1,000 mg Capsule] 1 each PO DAILY Multivitamin [Multiple Vitamins] 1 each PO DAILY Levothyroxine Sodium 133 mcg PO DAILY Ibuprofen [Motrin Ib] 800 mg PO Q6H PRN PRN Reason: Pain Discharge Medication List Multivitamin [Multiple Vitamins] 1 each PO DAILY 10/13/16 [History] [place]-3 Fatty Acids/Fish Oil [Fish Oil 1,000 mg Capsule] 1 each PO DAILY 10/13/16 [History] Levothyroxine Sodium 133 mcg PO DAILY 09/13/18 [History] Ibuprofen [Motrin Ib] 800 mg PO Q6H PRN 12/13/18 [History] Aspirin [Adult Low Dose Aspirin EC] 81 mg PO BID #60 tablet. 12/21/18 [Rx] Docusate [Colace] 100 mg PO DAILY #30 capsule 12/21/18 [Rx] Famotidine [Pepcid] 20 mg PO DAILY #30 tablet 12/21/18 [Rx] Hydrocodone/Acetaminophen [[place] 5-325] 1 - 2 each PO Q6HR PRN #56 tab 12/21/18 [Rx] traMADol HCl [Ultram] 50 mg PO Q6H PRN #28 tab 12/21/18 [Rx] Follow up Appointment(s)/Referral(s): Nomi Garrett DO [Doctor of Osteopathic Medicine] - 01/05/19 3:40 pm [facility], [NON-STAFF] - Kayla South MD [Primary Care Provider] - 12/29/18 8:00 am Activity/Diet/Wound Care/Special Instructions: Orthopedic Discharge Instructions: 1. Wound care and infection precautions, keep incision dry and covered while showering, no lotions, creams, moisturizers. No soaking, pools, hot tubs. Do not scrub over incision. 2. Weight-bear as tolerated with walker / cane until follow-up. 3. Ice and elevate when necessary. Do not exceed 20 minutes per hour with ice pack. 4. Utilize compression sleeve until seen at first follow up appointment. 5. Pain meds and anticoagulants per prescription. 6. Pain medication has potential to cause constipation. Increase oral fluid and fiber intake. Contact primary care provider if you have not had a bowel movement within 48 hours after discharge. 7. No anti-inflammatory medication until discussed at first post operative visit, this including Motrin, Aleve, Mobic, Diclofenac. 8. Follow up in office at 2 weeks postop with Eduard Montiel PA-C 9. Follow up with your primary care doctor 7-10 days after discharge. 10. Contact [facility] with any questions, [phone]. 11. *Please call [facility] once home to arrange delivery of Continuous Passive Motion (CPM) machine - [phone]. Discharge Disposition: HOME WITH HOME HEALTH SERVICES
[2018-12-21] MEDS ORDERED: MULTIVITAMINS, THERA 1 EACH TAB PO SCH (12:00)
--- NOTE | 2018-12-22 00:37 | P.PN ---
Progress Note - Text Progress Note Date: 12/21/18 Interval history: This is a very pleasant patient Dr. Betty South. Chronic stable medical co nditions include arthritis of the hip, hypothyroid varicose veins. She also has a thyroid nodule in the setting of a prior thyroidectomy for precancerous cells that is being followed closely. Patient underwent a left total knee arthroplasty. Today-some pain in the operative site. Did tolerate her diet. No nausea vomiting. No chest pain. Did work with therapy. Review of systems: Was done for constitutional, cardiovascular, GI, pulmonary. relevant finding as above Current medications reviewed in the electronic records of today state Physical examination: VITAL SIGNS: Reviewed in the today's electronic date GENERAL: Sitting upon a chair, comfortable. EYES: Pupils equal. Conjunctiva normal. HEENT: External appearance of nose and ears normal, oral cavity grossly normal. NECK: JVD not raised; masses not palpable. HEART: First and second heart sounds are normal; no edema. LUNGS: Respiratory rate normal; clear to auscultation. ABDOMEN: Soft, nontender, liver spleen not palpable, no masses palpable. PSYCH: Alert and oriented x3; mood and affect normal. NEUROLOGICAL: Cranial nerves grossly intact; no facial asymmetry, power and sensation grossly intact MUSCULOSKELETAL: Dressing over the left knee. LYMPHATICS: No lymph nodes palpable in the axilla and neck INVESTIGATIONS, reviewed in the clinical context: From December 14 White count 9.1 hemoglobin 15.2 potassium 4.1 Assessment: -Left total knee arthroplasty -Obesity BMI 33.5 -Thyroid nodule being followed as an outpatient -Lower extremity varicose vein -Primary osteoarthritis Plan: Stable. Continue current medication treatment plan. Care was discussed with the patient. Thank you
== END 2018-12-21 13:04 | disposition home health service (06) ==
LOC: OR 06:13 → 4SSUR 09:12 → OR 12-21 13:04
PROVIDERS: ATTEND Orthopaedic Surgery
DX: M17.12 Unilateral primary osteoarthritis, left knee (principal); M16.10 Unilateral primary osteoarthritis, unspecified hip; E89.0 Postprocedural hypothyroidism; E66.9 Obesity, unspecified; Z68.32 Body mass index [BMI] 32.0-32.9, adult; E04.1 Nontoxic single thyroid nodule; I83.90 Asymptomatic varicose veins of unspecified lower extremity; Z90.710 Acquired absence of both cervix and uterus; Z79.890 Hormone replacement therapy; Z79.1 Long term (current) use of non-steroidal anti-inflammatories (NSAID)
CPT/HCPCS: 27447; 97116; 97161; 64448; 85025; 88300; 73560; C1776; C1713; C1772; J2250 ×2; J0171; J1100; J0690 ×3; J2405; J3010; J1885; J1650; J2795 ×2; J2704; J0735; J1170

== ENCOUNTER → 2019-01-20 | Outpatient (CLI) | payer BC ==
--- NOTE | 2019-01-20 12:00 | US ---
EXAMINATION TYPE: US thyroid st tissue head/neck DATE OF EXAM: 01/20/2019 COMPARISON: 01/13/2018 CLINICAL HISTORY: E04.1 Thyroid Nodule. Patient states she had a complete thyroidectomy many years ag o. GLAND SIZE: Right Lobe: 1.5 x 0.5 x 0.9 cm Overall Parenchyma: homogeneous Left Lobe: 2.6 x 1.1 x 1.3 cm Overall Parenchyma: homogeneous Isthmus Thickness: 0.2 cm NODULES RIGHT: # of nodules measured on right: 0 LEFT: # of nodules measured on left: 2 1. 0.5 X 0.3 x 0.6 cm hypoechoic solid nodule at the upper pole with well-defined margins. This no dule is wider than tall and shows . Prior size: 0.5 x 0.4 x 0.6 cm 2. 0.8 X 0.4 x 0.7 cm hypoechoic mixed nodule at the lower pole with well-defined margins. This nod ule is wider than tall and shows . Prior size: 0.9 x 0.5 x 0.7 cm ISTHMUS: # of nodules measured in the isthmus: 0 Bilateral neck scanned, no evidence of lymphadenopathy. IMPRESSION: Similar size of the subcentimeter left thyroid nodules. Thyroid size either represent atrophy or part ial resection as the patient states there is a history of thyroidectomy.
== END | disposition home or self-care (01) ==
LOC: RADUSWWP 10:47
PROVIDERS: ATTEND Otolaryngology
DX: E04.2 Nontoxic multinodular goiter (principal); E89.0 Postprocedural hypothyroidism
CPT/HCPCS: 76536

== ENCOUNTER → 2019-04-08 | Outpatient (CLI) | payer BC ==
[2019-04-08 14:39] LABS: Basophils # (A) 0.1 k/uL (0-0.2); Basophils % (A) 1 %; Eosinophils # (A) 0.1 k/uL (0-0.7); Eosinophils % (A) 2 %; HCT 47.3 % (34.0-46.0); HGB 15.2 gm/dL (11.4-16.0); Lymphocytes # (A) 2.3 k/uL (1.0-4.8); Lymphocytes % (A) 31 %; MCHC 32.1 g/dL (31.0-37.0); MCV 90.5 fL (80.0-100.0); Mean Platelet Volume 7.5; Monocytes # (A) 0.4 k/uL (0-1.0); Monocytes % (A) 5 %; Neutrophils # (A) 4.6 k/uL (1.3-7.7); Neutrophils % (A) 60 %; Platelet Count 327 k/uL (150-450); RBC 5.22 m/uL (3.80-5.40); RDW 13.7 % (11.5-15.5); WBC 7.6 k/uL (3.8-10.6)
[2019-04-08 14:49] LABS: Potassium 4.6 mmol/L (3.5-5.1)
== END | disposition home or self-care (01) ==
LOC: LABPAT 13:41
PROVIDERS: ATTEND Orthopaedic Surgery
DX: Z01.812 Encounter for preprocedural laboratory examination (principal); M23.91 Unspecified internal derangement of right knee
CPT/HCPCS: 36415; 80051; 85025; 93005

== ENCOUNTER 2019-04-14 08:18 | Day surgery (SDC) | payer BC ==
[2019-04-12 14:56] VITALS: BMI 35.4
--- NOTE | 2019-04-13 14:38 | HP ---
HISTORY AND PHYSICAL DATE OF SURGERY: 04/14/2019 Lori Moore is a 58-year-old patient seen with progressive right knee pain. We discussed options for treatment, she elected to proceed with arthroscopy. Consent was obtained. PAST MEDICAL HISTORY: Hypothyroidism. PAST SURGICAL HISTORY: Right shoulder arthroscopy, left total knee arthroplasty, left knee arthroscopy. DAILY MEDICATIONS: Levothyroxine. ALLERGIES: None. SOCIAL HISTORY: She denies tobacco use. PHYSICAL EVALUATION OF THE RIGHT KNEE: Her range of motion is 0 to 125. Mild effusion. There is tenderness along the medial and lateral joint lines. There is positive medial Celena's. There is a positive lateral Celena's. Ligaments are stable. Hip rotation without pain. Distal neurovascular exam is intact. Right knee radiographs revealed some osteoarthritic changes. IMPRESSION: Internal derangement, right knee with meniscal tear. PLAN: Right knee arthroscopy with partial meniscectomy and debridement. MMODL / IJN: [id number] /
[~2019-04-14 08:18] MED LIST changes: -ACETAMINOPHEN TAB 500 MG TAB PO ONE; +DEXAMETHASONE SOD PHOSPHATE 10 MG/ML 1 ML VIAL IV ONE; +LACTATED RINGERS 1,000 ML IV SCH; -MELOXICAM 7.5 MG TAB PO ONE; -ROPIVACAINE 246.25 MG, EPINEPHrine 0.5 MG, KETOROLAC 30 MG, cloNIDine HCL/PF 80 MCG, WA... MISCELLANE ONE; +SCOPOLAMINE 1.5MG/72HR PATCH TRANSDERM ONE; -TRANEXAMIC ACID 1,000 MG in SODIUM CHLORIDE 0.9% 100 ML IVPB ONE; -fentaNYL (PF) 50 MCG/ML 2 ML AMP IV PRN
[2019-04-14] MEDS ORDERED: SUCCINYLCHOLINE CHLORIDE 100 MG/5 ML SYR IV ONE (09:06)
[2019-04-14] MEDS ORDERED: PROPOFOL 10 MG/ML 20 ML VIAL IV ONE (09:06)
[2019-04-14] MEDS ORDERED: fentaNYL (PF) 50 MCG/ML 2 ML AMP ONE (09:06)
[2019-04-14] MEDS ORDERED: LIDOCAINE 1% INJ 10MG/ML (20 ML MDV) ONE (09:06)
[2019-04-14] MEDS ORDERED: MIDAZOLAM 2 MG/2 ML VIAL ONE (09:06)
[2019-04-14] MEDS: ONDANSETRON 4 MG/2 ML VIAL IVP ONE ×2 (09:07→10:25)
[2019-04-14] MEDS ORDERED: MIDAZOLAM 2 MG/2 ML VIAL IV ONE (09:09)
[2019-04-14] MEDS ORDERED: BUPIVACAIN-EPI 0.25%-1:200,000 30 ML VIAL SQ ONE (09:30)
[2019-04-14 09:56] VITALS: TEMP 98
--- NOTE | 2019-04-14 09:58 | P.OP ---
Date of Procedure: 04/14/19 Preoperative Diagnosis: Internal derangement right knee Postoperative Diagnosis: 1. Tear medial meniscus right knee 2. Grade 3/4 chondromalacia medial femoral condyle right knee 3. 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 Reactive synovitis medial, lateral and suprapatellar compartments right knee Procedure(s) Performed: 1. Arthroscopic partial medial meniscectomy right knee 2. Arthroscopic chondroplasty medial femoral condyle right knee 3. Arthroscopic microfracture medial femoral condyle right knee 4. Arthroscopic chondroplasty femoral sulcus right knee 5. Arthroscopic partial synovectomy medial, lateral and suprapatellar c ompartments right knee Anesthesia: GETA, local Surgeon: Nomi Garrett Estimated Blood Loss (ml): 6 Pathology: none sent Condition: stable Disposition: PACU Indications for Procedure: 58-year-old patient seen with progressive right knee pain. After treatment options were discussed, she elected to proceed with arthroscopy. Operative Findings: see description of procedure Description of Procedure: Patient was taken to the operative suite. Patient underwent a general anesthetic by the department of anesthesia. Patient was given preoperative antibiotics. The right lower extremity was placed in a well-padded arthroscopic leg cross. The right leg was prepped and draped in the normal sterile orthopedic fashion. A lateral parapatellar and suprapatellar incision was made. Trochars were inserted. Arthroscopy was initiated. Suprapatellar pouch revealed diffuse thick reactive synovitis. The patellofemoral joint appeared to articulate congruently. There was grade 3/4 chondromalacia of the femoral sulcus and grade 1 chondromalacia of the patella. There were some osteochondral tears noted in the area of the femoral sulcus. The scope was guided into the medial gutter. No loose bodies or plica identified. The scope was then guided into the medial compartment. A medial parapatellar incision was made. Trocar inserted followed by probe. There was a radial tear posterior horn medial meniscus. There was an area of grade 3/4 chondromalacia central weightbearing surface medial femoral condyle with peripheral osteochondral flap tears. There was reactive synovitis anteriorly. I performed a partial medial meniscectomy. I performed a chondroplasty of the medial femoral condyle getting down the stable peripheral articular tissue. I performed a partial synovectomy. There was an area of exposed bone centrally in that weightbearing surface medial femoral condyle. I performed a microfracture [place] penetrating the bone with resultant bleeding at the microfracture site. The residual osteochondral surface was stable. The residual meniscus was stable. The residual osteochondral surface was stable. There was good decompression of synovitis. Scope and probe were then guided into the intercondylar notch. Cruciates were identified, probed and found to be stable. The scope and probe were then guided into lateral compartment. Lateral meniscus was probed and found be stable. There was no specific chondromalacia. There was thick reactive synovitis anteriorly. I introduced a motorized shaver and performed a partial synovectomy. There was good decompression of synovitis. The scope was in guided back into the suprapatellar compartment. I introduced a motorized shaver into the suprapatellar compartment. I debrided some piecemeal fragments of meniscus I encountered. I performed a chondroplasty of the femoral sulcus getting down to stable osteochondral tissue. I performed a partial synovectomy decompressing reactive synovitis. Shaver was removed. There was good decompression of synovitis. The residual osteochondral surface of the sulcus was stable. Instruments were now removed from the joint. The joint was infiltr ated with .25% Marcaine. Steri-Strips were applied to the portal sites. Sterile dressings were applied. The patient was placed into a CHIP hose. No tourniquet was utilized. The patient was awakened, transferred to a bed and taken to recovery stable satisfactory condition.
[2019-04-14] MEDS: HYDROmorphone 0.5 MG/0.5 ML SYRINGE IVP PRN ×2 (10:25→10:33)
[2019-04-14 12:09] VITALS: BP 118/45; PULSE 61; RESP 18
== END 2019-04-14 12:05 | disposition home or self-care (01) ==
LOC: OR 08:18
PROVIDERS: ATTEND Orthopaedic Surgery
DX: S83.241A Other tear of medial meniscus, current injury, right knee, initial encounter (principal); X58.XXXA Exposure to other specified factors, initial encounter; M22.41 Chondromalacia patellae, right knee; M65.861 Other synovitis and tenosynovitis, right lower leg; E03.9 Hypothyroidism, unspecified; K21.9 Gastro-esophageal reflux disease without esophagitis; Z96.652 Presence of left artificial knee joint; Z79.890 Hormone replacement therapy
CPT/HCPCS: 29881; 29876; 29879; J2250; J1100; J0690; J2405; J2001; J3010; J0330; J2704; J1170